=== PATIENT | male | born 1960 | race African-American/Black ===

== ENCOUNTER 2017-05-14 00:33 | Observation (INO) ==
[2017-05-14] MEDS ORDERED: NITROGLYCERIN 2% OINT 1 INCH/GM PACK TOP STA (00:52)
[2017-05-14] MEDS ORDERED: KETOROLAC 30 MG/1 ML VIAL IV STA (00:52)
[2017-05-14] MEDS ORDERED: ONDANSETRON 4 MG/2 ML VIAL IV STA (00:52)
[2017-05-14] MEDS ORDERED: ASPIRIN 325 MG TABLET PO STA ×2 (00:52→02:50)
[2017-05-14] MEDS ORDERED: NITROGLYCERIN 2% OINT 1 INCH/GM PACK TOP ONE (01:06)
[2017-05-14] MEDS ORDERED: ONDANSETRON 4 MG/2 ML VIAL ONE (01:07)
[2017-05-14] MEDS ORDERED: ASPIRIN 325 MG TABLET ONE (01:07)
[2017-05-14] MEDS ORDERED: KETOROLAC 30 MG/1 ML VIAL ONE (01:07)
[2017-05-14 01:12] LABS: Basophils % 0.5 % (0.0-0.8); Eosinophils # 0.1 10*3/uL (0.0-0.87); Eosinophils % 1.8 % (0.00-10.9); Hematocrit 39.6 VOL% (42.0-52.0); Hemoglobin 13.6 GM/DL (14.0-18.0); Immature Granulocytes % 0.2 %; Immature Granulocytes Absolute 0.01 #; Lymphocytes # 2.2 10*3/uL (1.4-4.0); Lymphocytes % 36.2 % (21.2-54.2); Mean Corpuscular HGB Conc 34.3 GM/DL (32-36); Mean Corpuscular Hemoglobin 30 PG (27-34); Mean Corpuscular Volume 88.2 FL (87-102); Mean Platelet Volume 11.4 FL (9.6-12.0); Monocytes # 0.8 10*3/uL (0.11-0.8); Monocytes % 13.9 % (1.7-12.7); Neutrophils # 2.8 10*3/uL (1.4-7.4); Neutrophils % 47.4 % (38.7-73.9); Platelet Count 226 T/CUMM (130-400); Red Blood Count 4.49 MC/CUMM (3.8-5.5); Red Cell Distribution Width 13.9 % (9.3-17.3)
[2017-05-14 01:21] LABS: INR 1.1; PT Patient Result 11.5 SECS; Partial Thromboplastin Time 25.7 SECS (0-40)
[2017-05-14 01:43] LABS: Alanine Aminotransferase 44 U/L (16-61); Albumin 3.6 G/DL (3.4-5.0); Alkaline Phosphatase 60 U/L (45-117); Aspartate Amino Transferase 40 U/L (0-37); Bilirubin,Total < 0.39 MG/DL (0.2-1.0); Blood Urea Nitrogen 20 MG/DL (7-18); Calcium 9.1 MG/DL (8.5-10.1); Glucose 192 MG/DL (74-106); Osmolality,Calculated 288.3 MOS/KG (273-304); Sodium 141 MMOL/L (136-145); Total Protein 7.8 G/DL (6.4-8.3)
[2017-05-14] MEDS ORDERED: INSULIN LISPRO 100 UNIT/ML SUBCUT ONE (02:51)
[2017-05-14] MEDS ORDERED: METHOCARBAMOL 500 MG TABLET PO PRN (02:57)
[2017-05-14 03:20] LABS: Calcium 8.5 MG/DL (8.5-10.1); Osmolality,Calculated 289.3 MOS/KG (273-304); Potassium 4.2 MMOL/L (3.5-5.1)
[2017-05-14] MEDS ORDERED: PNEUMOCOCCAL VACCINE (23 VALENT) 0.5 ML VIAL IM ONE (04:10)
[2017-05-14] MEDS ORDERED: INFLUENZA VIRUS VACCINE 0.5 ML SYRINGE IM ONE (04:10)
[2017-05-14 04:52] LABS: Basophils % 0.5 % (0.0-0.8); Eosinophils # 0.1 10*3/uL (0.0-0.87); Eosinophils % 1.3 % (0.00-10.9); Hematocrit 37.3 VOL% (42.0-52.0); Hemoglobin 12.4 GM/DL (14.0-18.0); Immature Granulocytes % 0.2 %; Immature Granulocytes Absolute 0.01 #; Lymphocytes # 2.3 10*3/uL (1.4-4.0); Lymphocytes % 36.7 % (21.2-54.2); Mean Corpuscular HGB Conc 33.2 GM/DL (32-36); Mean Corpuscular Hemoglobin 30 PG (27-34); Mean Corpuscular Volume 88.6 FL (87-102); Mean Platelet Volume 11.5 FL (9.6-12.0); Monocytes # 0.8 10*3/uL (0.11-0.8); Monocytes % 13.1 % (1.7-12.7); Neutrophils % 48.2 % (38.7-73.9); Platelet Count 213 T/CUMM (130-400); Red Blood Count 4.21 MC/CUMM (3.8-5.5); White Blood Count 6.2 T/CUMM (4-12)
[2017-05-14 05:20] LABS: Calcium 9.1 MG/DL (8.5-10.1); Osmolality,Calculated 291.1 MOS/KG (273-304); Potassium 4.5 MMOL/L (3.5-5.1)
[2017-05-14 05:23] LABS: Risk Ratio 2.73; VLDL CHOLESTEROL 14.6 MG/DL
[2017-05-14] MEDS: HEPARIN DRIP 25,000 UNITS/500 ML PREMIX IV SCH ×2 (06:24→21:33)
[2017-05-14] MEDS ORDERED: amLODIPine 10 MG TABLET PO SCH (09:00)
[2017-05-14] MEDS ORDERED: ENOXAPARIN 40 MG/0.4 ML SYRINGE SUBCUT SCH (09:00)
[2017-05-14] MEDS: amLODIPine 5 MG TABLET PO SCH (09:45)
[2017-05-14] MEDS: TERAZOSIN 5 MG CAPSULE PO SCH (09:45)
[2017-05-14] MEDS: FAMOTIDINE 20 MG TABLET PO SCH ×2 (09:45→20:28)
[2017-05-14] MEDS: METOPROLOL TARTRATE 50 MG TABLET PO SCH ×2 (09:46→20:28)
[2017-05-14] MEDS: ASPIRIN EC 325 MG TABLET PO SCH (09:49)
[2017-05-14] MEDS ORDERED: DEXTROSE 50% 25 GM/50 ML VIAL IV PRN (16:50)
[2017-05-14] MEDS ORDERED: GLUCAGON 1 MG VIAL IM PRN (16:50)
[2017-05-14] MEDS: metFORMIN 500 MG TABLET PO SCH (17:23)
[2017-05-14] MEDS: INSULIN REGULAR 100 UNIT/ML SUBCUT SCH (20:28)
[2017-05-14] MEDS: ATORVASTATIN 40 MG TABLET PO SCH (20:28)
[2017-05-15 04:52] LABS: Basophils % 0.3 % (0.0-0.8); Eosinophils # 0.2 10*3/uL (0.0-0.87); Eosinophils % 3.2 % (0.00-10.9); Hematocrit 35.1 VOL% (42.0-52.0); Hemoglobin 11.8 GM/DL (14.0-18.0); Lymphocytes # 2.3 10*3/uL (1.4-4.0); Lymphocytes % 39.5 % (21.2-54.2); Mean Corpuscular HGB Conc 33.6 GM/DL (32-36); Mean Corpuscular Hemoglobin 30 PG (27-34); Mean Corpuscular Volume 88.2 FL (87-102); Mean Platelet Volume 12.2 FL (9.6-12.0); Monocytes # 0.8 10*3/uL (0.11-0.8); Monocytes % 14.2 % (1.7-12.7); Neutrophils # 2.5 10*3/uL (1.4-7.4); Neutrophils % 42.8 % (38.7-73.9); Platelet Count 177 T/CUMM (130-400); Red Blood Count 3.98 MC/CUMM (3.8-5.5); Red Cell Distribution Width 13.7 % (9.3-17.3); White Blood Count 5.9 T/CUMM (4-12)
[2017-05-15 05:52] LABS: Calcium 8.4 MG/DL (8.5-10.1); Osmolality,Calculated 285.5 MOS/KG (273-304); Potassium 3.7 MMOL/L (3.5-5.1)
[2017-05-15] MEDS: HEPARIN DRIP 25,000 UNITS/500 ML PREMIX IV SCH ×2 (07:14→13:30)
[2017-05-15] MEDS: amLODIPine 5 MG TABLET PO SCH (08:17)
[2017-05-15] MEDS: ASPIRIN EC 325 MG TABLET PO SCH (08:17)
[2017-05-15] MEDS: FAMOTIDINE 20 MG TABLET PO SCH ×2 (08:18→20:46)
[2017-05-15] MEDS: INSULIN REGULAR 100 UNIT/ML SUBCUT SCH ×4 (08:18→20:46)
[2017-05-15] MEDS: METOPROLOL TARTRATE 50 MG TABLET PO SCH ×2 (08:18→20:46)
[2017-05-15] MEDS: TERAZOSIN 5 MG CAPSULE PO SCH (08:18)
[2017-05-15] MEDS: metFORMIN 500 MG TABLET PO SCH ×2 (08:19→17:23)
[2017-05-15] MEDS ORDERED: POTASSIUM CHLORIDE RIDER 10 MEQ in PREMIX 1 EACH IV PRN (14:37)
[2017-05-15] MEDS ORDERED: MAGNESIUM SULF RIDER 2 GM in PREMIX 1 EACH IV PRN (14:37)
[2017-05-15] MEDS ORDERED: DIAZEPAM 5 MG TABLET PO ONE (14:37)
[2017-05-15] MEDS ORDERED: diphenhydrAMINE CAP 25 MG CAPSULE PO ONE (14:37)
[2017-05-15] MEDS: ATORVASTATIN 40 MG TABLET PO SCH (20:46)
[2017-05-15] MEDS: SODIUM CHLORIDE 0.9% 1,000 ML IV SCH (22:13)
[2017-05-16] MEDS: HEPARIN DRIP 25,000 UNITS/500 ML PREMIX IV SCH ×2 (03:59→08:30)
[2017-05-16] MEDS: SODIUM CHLORIDE 0.9% 1,000 ML IV SCH (06:19)
[2017-05-16] MEDS ORDERED: DIAZEPAM 5 MG TABLET ONE (08:33)
[2017-05-16] MEDS ORDERED: diphenhydrAMINE CAP 25 MG CAPSULE ONE (08:34)
[2017-05-16] MEDS: FAMOTIDINE 20 MG TABLET PO SCH ×2 (08:57→21:12)
[2017-05-16] MEDS: ASPIRIN EC 325 MG TABLET PO SCH (08:57)
[2017-05-16] MEDS: INSULIN REGULAR 100 UNIT/ML SUBCUT SCH ×4 (08:57→21:13)
[2017-05-16] MEDS: amLODIPine 5 MG TABLET PO SCH (08:58)
[2017-05-16] MEDS: METOPROLOL TARTRATE 50 MG TABLET PO SCH (08:58)
[2017-05-16] MEDS: TERAZOSIN 5 MG CAPSULE PO SCH (08:58)
[2017-05-16] MEDS ORDERED: LIDOCAINE 1% 20 ML VIAL ONE (09:43)
[2017-05-16] MEDS ORDERED: MEPERIDINE 25 MG/1 ML VIAL ONE (09:44)
[2017-05-16] MEDS ORDERED: MIDAZOLAM 2 MG/2 ML VIAL ONE (09:44)
[2017-05-16] MEDS ORDERED: HEPARIN 5,000 UNIT/1 ML VIAL ONE (09:53)
[2017-05-16] MEDS ORDERED: DEXTROSE 50% 25 GM/50 ML VIAL IV PRN (11:58)
[2017-05-16] MEDS ORDERED: ACETAMINOPHEN 325 MG TABLET PO PRN (11:58)
[2017-05-16] MEDS ORDERED: GLUCAGON 1 MG VIAL IM PRN (11:58)
[2017-05-16] MEDS ORDERED: ACETAMINOPHEN/CODEINE 300-30 MG TABLET PO PRN (11:58)
[2017-05-16] MEDS: FUROSEMIDE 20 MG TABLET PO SCH (13:27)
[2017-05-16] MEDS: LOSARTAN 25 MG TABLET PO SCH ×2 (13:28→21:13)
[2017-05-16] MEDS: CARVEDILOL 12.5 MG TABLET PO SCH (21:12)
[2017-05-16] MEDS: ATORVASTATIN 40 MG TABLET PO SCH (21:12)
[2017-05-17 05:53] LABS: Basophils % 0.4 % (0.0-0.8); Eosinophils # 0.1 10*3/uL (0.0-0.87); Eosinophils % 2.9 % (0.00-10.9); Hematocrit 37.5 VOL% (42.0-52.0); Hemoglobin 12.5 GM/DL (14.0-18.0); Immature Granulocytes % 0.2 %; Immature Granulocytes Absolute 0.01 #; Lymphocytes # 1.6 10*3/uL (1.4-4.0); Lymphocytes % 34.7 % (21.2-54.2); Mean Corpuscular HGB Conc 33.3 GM/DL (32-36); Mean Corpuscular Hemoglobin 30 PG (27-34); Mean Corpuscular Volume 88.4 FL (87-102); Mean Platelet Volume 11.5 FL (9.6-12.0); Monocytes # 0.6 10*3/uL (0.11-0.8); Monocytes % 13.2 % (1.7-12.7); Neutrophils # 2.2 10*3/uL (1.4-7.4); Neutrophils % 48.6 % (38.7-73.9); Platelet Count 205 T/CUMM (130-400); Red Blood Count 4.24 MC/CUMM (3.8-5.5); Red Cell Distribution Width 13.7 % (9.3-17.3); White Blood Count 4.5 T/CUMM (4-12)
[2017-05-17 06:30] LABS: Calcium 8.5 MG/DL (8.5-10.1); Osmolality,Calculated 286.4 MOS/KG (273-304)
[2017-05-17] MEDS: TERAZOSIN 5 MG CAPSULE PO SCH (08:22)
[2017-05-17] MEDS: ASPIRIN EC 325 MG TABLET PO SCH (08:22)
[2017-05-17] MEDS: LOSARTAN 25 MG TABLET PO SCH (08:22)
[2017-05-17] MEDS: INSULIN REGULAR 100 UNIT/ML SUBCUT SCH ×2 (08:23→13:04)
[2017-05-17] MEDS: FAMOTIDINE 20 MG TABLET PO SCH (08:23)
[2017-05-17] MEDS: FUROSEMIDE 20 MG TABLET PO SCH (08:23)
[2017-05-17] MEDS: CARVEDILOL 12.5 MG TABLET PO SCH (08:23)
[2017-05-17] MEDS ORDERED: SPIRONOLACTONE 25 MG TABLET PO SCH (09:00)
[2017-05-17 12:17] VITALS: BP 142/92
== END 2017-05-17 13:07 | disposition home or self-care (01) ==
LOC: N.TELEN 00:33 → N.ED 00:33 → SUATTDRO 02:52 → N.TELEN 03:41
PROVIDERS: ADMIT Internal Medicine; ATTEND Internal Medicine
PROC: CLCCHCL (ICD-10-PCS; 2017-05-16 10:45)